=== PATIENT | female | born 1990 | race Caucasian/White ===

== ENCOUNTER → 2020-03-28 10:47 | Observation (INO) ==
[2020-03-28 09:16] LABS: Bilirubin,Urine Negative (Negative); Blood,Urine Negative (Negative); Clarity,Urine Clear (Clear); Color,Urine Light-Yellow (Yellow); Glucose,Urine (UA) Normal (Normal); Ketones,Urine Negative (Negative); Leukocyte Esterase,Urine Negative (Negative); Nitrite,Urine Negative (Negative); Protein,Urine Trace mg/dL (Neg-Trace); Specific Gravity,Urine > 1.030 (1.010-1.025); Urobilinogen,Urine Normal (Normal)
[~2020-03-28 10:47] MED LIST: Rho Immune Globulin 1,500 UNIT SYRINGE IM ONE
== END | disposition home or self-care (01) ==
LOC: 1NENULAB
PROVIDERS: ADMIT Student in an Organized Health Care Education/Training Program; ATTEND Student in an Organized Health Care Education/Training Program

== ENCOUNTER 2020-05-21 03:52 | Inpatient (IN) ==
[2020-05-21] MEDS ORDERED: Metoclopramide 10 MG/2 ML VIAL IVP PRN (04:07)
[2020-05-21] MEDS ORDERED: Famotidine 20 MG/2 ML VIAL IVP PRN (04:07)
[2020-05-21] MEDS ORDERED: miSOPROStoL 25 MCG TABLET PO PRN (04:07)
[2020-05-21] MEDS ORDERED: Naloxone 0.4 MG/ML INJ IVP PRN (04:07)
[2020-05-21] MEDS ORDERED: D5% in 0.45% NACL 1,000 ML IVC SCH (04:15)
[2020-05-21 04:37] LABS: Basophils % 0.4 %; Eosinophils # 0.1 K/mcL (0.0-0.6); Eosinophils % 0.8 %; Hematocrit 37.7 % (35.3-44.9); Hemoglobin 12.5 g/dL (11.5-15.4); Immature Granulocytes % 0.4 % (0-4); Lymphocytes # 2.3 K/mcL (0.6-4.6); Lymphocytes % 21.8 %; Mean Corpuscular HGB Conc 33.2 g/dL (31.6-35.5); Mean Corpuscular Hemoglobin 28.2 pg (28.0-33.3); Mean Corpuscular Volume 84.9 fL (83.0-100.0); Mean Platelet Volume 11.4 fL (9.4-12.4); Monocytes # 0.8 K/mcL (0.0-1.3); Monocytes % 7.1 %; Neutrophils # 7.4 K/mcL (1.6-8.9); Platelet Count 265 K/mcL (140-400); Red Blood Count 4.44 M/mcL (3.82-4.97); Red Cell Distribution Width 13.2 % (11.5-14.5); Segmented Neutrophils % 69.5 %; White Blood Count 10.6 K/mcL (4.3-11.1)
[2020-05-21] MEDS ORDERED: Ringers Solution, Lactated 1,000 ML ONE ×3 (04:37→21:55)
[2020-05-21 04:46] LABS: Amphetamine Screen,Urine Negative ng/mL (Cutoff=1000); Barbiturate Screen,Urine Negative ng/mL (Cutoff=200); Benzodiazepines Screen,Urine Negative ng/mL (Cutoff=200); Cannabinoid Screen,Urine Negative ng/mL (Cutoff = 50); Cocaine Screen,Urine Negative ng/mL (Cutoff= 300); Opiate Screen,Urine Negative ng/mL (Cutoff=300); Phencyclidine Screen,Urine Negative ng/mL (Cutoff=25)
[2020-05-21] MEDS ORDERED: Oxytocin 20 units/ LR 1000 mL 20 UNIT/1,000 ML BAG IVC SCH (09:30)
[2020-05-21] MEDS ORDERED: EPHEDrine 50 MG/ML VIAL IVP PRN (21:54)
[2020-05-21] MEDS ORDERED: Epidural Premix (fent/bupiv) 110 ML EP ONE (21:58)
[2020-05-21] MEDS ORDERED: Epidural Premix (fent/bupiv) 110 ML EP SCH (22:00)
[2020-05-22] MEDS ORDERED: Ringers Solution, Lactated 1,000 ML ONE (01:54)
[2020-05-22] MEDS ORDERED: Ondansetron 4 MG/2 ML VIAL IVP PRN (02:35)
[2020-05-22] MEDS ORDERED: Rho Immune Globulin 1,500 UNIT SYRINGE IM PRN (09:35)
[2020-05-22] MEDS ORDERED: Oxytocin 20 units/ LR 1000 mL 20 UNIT/1,000 ML BAG IVC SCH (09:35)
[2020-05-22] MEDS ORDERED: Loratadine 10 MG TABLET PO SCH (09:35)
[2020-05-22] MEDS ORDERED: Lanolin 7 G OINT...G. TP PRN (09:35)
[2020-05-22] MEDS ORDERED: Benzocaine/Menthol 56 GM AEROSOL SPRAY TP PRN (09:35)
[2020-05-22] MEDS: Prenatal Vit/FA 1 EACH TABLET PO SCH (10:18)
[2020-05-22] MEDS: Ibuprofen 600 MG TABLET PO SCH ×2 (10:20→18:00)
[2020-05-22] MEDS: Acetaminophen 325 MG TABLET PO SCH ×3 (12:00→22:45)
[2020-05-23 07:35] VITALS: BP 108/72
[2020-05-23] MEDS: Prenatal Vit/FA 1 EACH TABLET PO SCH (08:33)
[2020-05-23] MEDS: Ibuprofen 600 MG TABLET PO SCH (08:33)
[2020-05-23] MEDS: Acetaminophen 325 MG TABLET PO SCH (08:34)
[2020-05-23] MEDS ORDERED: Loratadine 10 MG TABLET PO SCH (09:00)
== END 2020-05-23 14:20 | disposition home or self-care (01) | DRG 807 ==
LOC: 1NENULAB 03:52 → 1NENUOBS 05-22 09:29
PROVIDERS: ADMIT Obstetrics & Gynecology; ATTEND Obstetrics & Gynecology